=== PATIENT | female | born 1950 | race Caucasian/White ===

== ENCOUNTER 2020-03-02 15:45 | Outpatient (CLI) | payer BC ==
--- NOTE | 2020-03-02 17:20 | XRAY Report ---
PROCEDURE: Ribs 3 View BILAT INDICATIONS: THORACIC BACK PAIN TECHNIQUE: 2 oblique views of the ribs and a single frontal view of the chest were obtained. COMPARISON: None. FINDINGS: Surgical changes and devices: None. Bones and chest wall: No acute displaced fractures or dislocations. No suspicious bony lesions. Ov erlying soft tissues appear unremarkable. Lungs and pleura: The visualized lung appears clear. No pleural effusions or pneumothorax are visib le. IMPRESSION: No displaced rib fracture. No pleural effusion or pneumothorax. Reviewed by: Boone Kenney MD on 03/02/2020 5:18 PM PDT Approved by: Boone Kenney MD on 03/02/2020 5:18 PM PDT Station ID: [id number]
== END 2020-03-02 15:46 | disposition home or self-care (01) ==
LOC: DI.S 15:45
PROVIDERS: ATTEND Physician Assistant
DX: M54.6 Pain in thoracic spine (principal)
CPT/HCPCS: 71110

== ENCOUNTER 2020-09-19 07:10 | Outpatient (CLI) | payer BC ==
--- NOTE | 2020-09-19 16:03 | Ultrasound Report ---
PROCEDURE: Abdomen Limited INDICATIONS: Right upper quadrant abdominal pain TECHNIQUE: Real-time focused scanning was performed of the abdomen, with image documentation. COMPARISON: None FINDINGS: Diffuse [id number] hepatic steatosis. Multiple hepatic cysts, largest in the right h epatic lobe measuring 5 cm and largest in the left hepatic lobe measuring 0.9 cm. Normally distended gallbladder without sludge, stone, wall thickening, or pericholecystic fluid. Nondilated intrahepatic and extra hepatic biliary ducts. Visualized portions of the pancreas are normal. The right kidney co ntains 2 simple cysts, largest measuring 2.7 cm and the other measuring 1.9 cm. no shadowing kyphosis or hydronephrosis. IMPRESSION: Hepatic and renal cysts, of doubtful clinical significance. Mild to moderate hepatic steatosis, a potential source of right upper quadrant abdominal pain. Reviewed by: Gurvinder Everett MD on 09/19/2020 4:01 PM PDT Approved by: Gurvinder Evreett MD on 09/19/2020 4:01 PM PDT Station ID: [id number]
== END 2020-09-19 07:11 | disposition home or self-care (01) ==
LOC: DI 07:10
PROVIDERS: ATTEND Physician Assistant
DX: K76.89 Other specified diseases of liver (principal); N28.1 Cyst of kidney, acquired; K76.0 Fatty (change of) liver, not elsewhere classified